=== PATIENT | female | born 2005 | race Caucasian/White ===

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

== ENCOUNTER 2023-11-01 12:47 | Emergency (ER) | payer MEDICAID, OTHER | END 2023-11-01 19:46 | disposition left against medical advice (07) | LOC: MED 12:47 | DX: O46.91 Antepartum hemorrhage, unspecified, first trimester (principal); Z53.21 Procedure and treatment not carried out due to patient leaving prior to being seen by health care provider; Z3A.01 Less than 8 weeks gestation of pregnancy ==